=== PATIENT | female | born 1950 | race Two or more races ===

== ENCOUNTER 2018-04-22 22:39 | Emergency (ER) | payer OTHER ==
[~2018-04-22] VITALS: Ht 162.6 cm; Wt 80.7 kg
--- NOTE | 2018-04-22 23:10 | NUR ---
PT PRESENTED TO THE ER WITH A C/O LEFT SIDED SHOULDER PAIN 10/12 THAT RADIATES FROM THE NECK. PT STATED THAT SHE HAS BEEN SUFFERING WITH THIS FOR 1 MONTH AND HAS NO RELIEF. PT LAST TOOK MEDICATION YESTERDAY AT 10PM. PT IS NOT ABLE TO MOVE HER HEAD FROM SIDE TO SIDE WITHOUT PAIN. PT REC'D A WARM PACK TO THE LEFT NECK/SHOULDER. WILL CONTINUE TO MONITOR THE PT.
--- NOTE | 2018-04-22 23:48 | NUR ---
DR. JEAN IS AT THE BEDSIDE WITH RUDY FLOWERS WHO IS TRANSLATING FOR THE PT AND MD.
[2018-04-23] MEDS ORDERED: DIAZEPAM 10 MG TABLET PO ONE
[2018-04-23] MEDS ORDERED: HYDROCODONE/APAP 5/325MG 1 EACH TABLET PO ONE
[2018-04-23] MEDS ORDERED: DIAZEPAM 5 MG TABLET ONE (00:26)
[2018-04-23] MEDS ORDERED: IBUPROFEN 600 MG TABLET PO ONE ×2 (00:26)
[2018-04-23] MEDS ORDERED: HYDROCODONE/APAP 5/325MG 1 EACH TABLET ONE (00:26)
--- NOTE | 2018-04-23 00:47 | NUR ---
CXR DONE AT THE BEDSIDE.
--- NOTE | 2018-04-23 01:15 | NUR ---
HERB CALLED RE: IMAGING READ.
[2018-04-23 02:38] VITALS: BP 110/89
== END 2018-04-23 02:38 | disposition home or self-care (01) ==
LOC: ER 22:42
DX: M62.830 Muscle spasm of back (principal); I10 Essential (primary) hypertension; J45.909 Unspecified asthma, uncomplicated; Z60.2 Problems related to living alone
CPT/HCPCS: 71045-TC

== ENCOUNTER 2018-04-28 22:00 | Emergency (ER) | payer OTHER ==
[~2018-04-28] VITALS: Ht 162.6 cm; Wt 78.5 kg
[2018-04-28 22:11] VITALS: BP 152/90
[2018-04-28] MEDS: KETOROLAC TROMETHAMINE INJ 60 MG/2 ML VIAL IM ONE (22:50)
[2018-04-28] MEDS: CARISOPRODOL 350 MG TABLET PO ONE (22:50)
[2018-04-28] MEDS ORDERED: KETOROLAC TROMETHAMINE INJ 60 MG/2 ML VIAL IM ONE (22:52)
[2018-04-28] MEDS ORDERED: CARISOPRODOL 350 MG TABLET ONE (22:53)
== END 2018-04-28 23:06 | disposition home or self-care (01) ==
LOC: ER 22:02
DX: M62.830 Muscle spasm of back (principal); I10 Essential (primary) hypertension; J45.909 Unspecified asthma, uncomplicated; Z60.2 Problems related to living alone
CPT/HCPCS: J1885

== ENCOUNTER 2020-03-15 14:23 | Inpatient (IN) | payer MEDICAID, MEDICARE, OTHER ==
[~2020-03-15] VITALS: Ht 165.1 cm; Wt 77.1 kg
--- NOTE | 2020-03-15 14:35 | NUR ---
bibra c/o sob, desat 87% ON RA. denies any fever, cough. covid + she states. vs checked. placed on 4l o2 saturating at 94%.
[2020-03-15] MEDS ORDERED: LOSA25TA27 PO (14:38)
[2020-03-15] MEDS ORDERED: FLUT1BLS12 INH (14:38)
[2020-03-15] MEDS ORDERED: MAGN400T26 PO (14:38)
[2020-03-15] MEDS ORDERED: OMEP20CA15 PO (14:38)
[2020-03-15] MEDS ORDERED: ALBU18HF2 MT (14:38)
--- NOTE | 2020-03-15 14:50 | NUR ---
covid swab collected antigen sent to lab
[2020-03-15] MEDS ORDERED: DEXAMETHASONE SOD PHOSPHATE 10 MG/ML VIAL ONE (14:54)
[2020-03-15] MEDS ORDERED: ALBUTEROL FS 2.5 MG/3 ML VIAL.NEB ONE (14:54)
[2020-03-15] MEDS ORDERED: IPRATROPIUM NEB FS 0.5 MG/2.5 ML AMPUL.NEB ONE (14:54)
[2020-03-15] MEDS ORDERED: ALBUTEROL FS 2.5 MG/3 ML VIAL.NEB NEB ONE (15:00)
[2020-03-15] MEDS ORDERED: DEXAMETHASONE SOD PHOSPHATE 10 MG/ML VIAL IV ONE ×2 (15:00)
[2020-03-15] MEDS ORDERED: IPRATROPIUM NEB FS 0.5 MG/2.5 ML AMPUL.NEB NEB ONE (15:00)
--- NOTE | 2020-03-15 15:15 | NUR ---
xray by bedside
[2020-03-15] MEDS ORDERED: NORT25CA PO (15:16)
--- NOTE | 2020-03-15 15:30 | NUR ---
CALLED NURSING SUP FOR TELE BED.
[2020-03-15 15:43] LABS: CALCIUM, SERUM 8.1 mg/dL (8.5-10.1); CREATININE 0.9 mg/dL (0.6-1.3); POTASSIUM 3.8 mmol/L (3.5-5.1)
[2020-03-15 15:48] LABS: BASOPHILS % (AUTO) 0.1 % (0.0-2.0); HEMATOCRIT 42 % (33-45); HEMOGLOBIN 14.5 g/dL (11.5-14.8); LYMPHOCYTES % (AUTO) 11.5 % (20.0-44.0); MEAN CORPUSCULAR HGB CONC 34 g/dl (31.0-36.0); MEAN CORPUSCULAR VOLUME 95 fL (82-100); MONOCYTES # (AUTO) 0.8 /CMM (0.1-1.30); MONOCYTES % (AUTO) 9.4 % (2.0-12.0); NEUTROPHILS # (AUTO) 6.9 /CMM (1.8-8.9); PLATELET COUNT (AUTO) 192 /CMM (150-450); RED BLOOD CELL COUNT(AUTO) 4.45 MIL/uL (4.0-5.2); WHITE BLOOD COUNT (AUTO) 8.8 K/uL (4.3-11.0)
[2020-03-15 15:56] LABS: ALBUMIN 2.9 g/dL (3.4-5.0); BILIRUBIN,TOTAL 0.4 mg/dL (0.2-1.0); TOTAL PROTEIN, SERUM 7.4 g/dL (6.4-8.2)
[2020-03-15 16:33] LABS: BILIRUBIN,URINE NEGATIVE (NEGATIVE); BLOOD, URINE TRACE-INTA Ery/uL (NEGATIVE); COLOR,URINE YELLOW (YELLOW); LEUKOCYTE ESTERASE ,URINE NEGATIVE (NEGATIVE); NITRITE, URINE NEGATIVE (NEGATIVE); PH,URINE 6.5 (5.0-8.0); PROTEIN,URINE 30 mg/dl (NEGATIVE); UGLUCOSE NEGATIVE (NEGATIVE); UROBILINOGEN,URINE 0.2 EU/dL (0.2)
[2020-03-15 16:48] LABS: BACTERIA,URINE RARE /HPF (None Seen); SQUAMOUS EPITHELIAL CELL,UR 0-2 /HPF (None Seen); WBC,URINE 0-2 /HPF (0-3)
[2020-03-15] MEDS ORDERED: HYDROCODONE/APAP 5/325MG TABLET PO PRN (18:00)
[2020-03-15] MEDS ORDERED: Z GUARD REMEDY 2 OZ OINT TP PRN (18:00)
[2020-03-15] MEDS: DEXAMETHASONE SOD PHOSPHATE 4 MG/ML VIAL IV ONE (18:00)
[2020-03-15] MEDS ORDERED: ZOLPIDEM TARTRATE 5 MG TABLET PO PRN (18:00)
[2020-03-15] MEDS ORDERED: IPRATROPIUM/ALBUTEROL INHALER IH SCH (18:00)
[2020-03-15] MEDS ORDERED: MAGNESIUM HYDROXIDE 30 ML UDC PO PRN (18:00)
[2020-03-15] MEDS ORDERED: APIXABAN 5 MG TABLET PO SCH ×2 (18:00→23:26)
[2020-03-15] MEDS ORDERED: ONDANSETRON HCL/PF 4 MG/2 ML VIAL IVP PRN (18:00)
[2020-03-15] MEDS ORDERED: ALBUTEROL SULFATE INH 18 GM HFA.AER.AD IH PRN ×2 (18:00→22:34)
[2020-03-15] MEDS ORDERED: ALBUTEROL SULFATE 8 GM HFA.AER.AD IH PRN (18:30)
[2020-03-15 18:56] LABS: C-REACTIVE PROTEIN 8.6 mg/dL (0.0-0.9)
--- NOTE | 2020-03-15 19:29 | NUR ---
COVID NEGATIVE, PER LAB.
--- NOTE | 2020-03-15 21:48 | NUR ---
TELE 209-1
--- NOTE | 2020-03-15 21:54 | NUR ---
ATTEMPTED TO GIVE REPORT, NURSE IS BUSY PASSING MEDICATIONS.
[2020-03-15] MEDS ORDERED: REMDESIVIR (CHARGED) 200 MG, *LOADING DOSE 1 EA in IV NS 0.9% 210 ML IV ONE (22:00)
[2020-03-15] MEDS ORDERED: AZITHROMYCIN 250 MG TABLET PO ONE (22:28)
[2020-03-15] MEDS ORDERED: ENOXAPARIN SODIUM 40 MG/0.4 ML DISP.SYRIN SQ SCH (22:30)
[2020-03-15 22:35] VITALS: BP 122/70
--- NOTE | 2020-03-15 22:35 | NUR ---
PRESS CLEANERTANK STORAGE SUPERVISOR NOTE RECEIVED PATIENT VIA GURNEY, TRANSFERED TO BED WITH NO INJURY. PATIENT IS A/OX4, ESTONIAN SPEAKING, ABLE TO MAKE BASIC NEEDS KNOWN. ABLE TO TOLERATE ROOM AIR. O2 SAT 100% BUT PATIENT IS FEELING SOB APPLIED 2L/MIN VIA NASAL CANNULA. RESPIRATIONS ARE EVEN AND UNLABORED. NO S/S SOB NOTED. C/O HEADACHE AT THIS TIME, REQUESTING TYLENOL. NOTIFIED WILL SEE MD ORDER. EXTERNAL TELE MONITOR READS SINUS RHYTHM HR 71. IN NO APPARENT DISTRESS. IV ACCESS IN RAC#18 PATENT AND SALINE LOCKED. CATERER HELPER OBTAINED BELONGING LIST AND VITAL SIGNS. INITIAL ASSESSMENT COMPLETED AT THIS TIME. SKIN ASSESSMENT COMPLETED, SKIN INTACT. BED IS LOW AND LOCKED, HOB ELEVATED IN SEMI FOWLERS, SIDE RIALS UP X2, CALL LIGHT WITHIN REACH. WILL CONTINUE TO MONITOR
--- NOTE | 2020-03-15 22:42 | NUR ---
REPORT GIVEN TO MECHELLE MEHTA FOR SHAWN.
--- NOTE | 2020-03-15 22:43 | NUR ---
PATIENT IS TAKEN UP TO ROOM FOR SHAWN.
--- NOTE | 2020-03-15 23:30 | NUR ---
FIREBOAT OPERATOR NOTE CALLED [facility] TO CHANGE THE TIMES FOR PATIENTS MEDICATIONS D/T PATIENT LATE ARRIVAL TO UNIT. FOR ELIQUIS, COMBIVENT, AND DECADRON.
--- NOTE | 2020-03-15 23:32 | NUR ---
TEACHER INDUSTRIAL ARTS NOTE CALLED DR. SANCHEZ AND ASKED FOR CLARIFICATION D/T PATIENT HAS 2 ANTICOAGULANTS ORDERED FROM DIFFERENT DOCTORS. DR. SANTIAGO ORDERED LOVENOX 40MG AND DR. MADDOX ORDERED ELIQUIS 5MG. PER DANIEL GIVE PATIENT ELIQUIS AND HOLD LOVENOX FOR NOW, DO NOT DC, ENDORSE TO NEXT SHIFT TO CLARIFY WITH DAY PROVIDER. ORDER READ BACK NOTED AND CARRIED OUT.
--- NOTE | 2020-03-15 23:57 | NUR ---
BELT WORKER NOTE FAXED MEDICATION ORDER TO NURSING CHIEF EXECUTIVE OR MANAGING DIRECTOR FOR ROCEPHIN 1GM, AND COMBIVENT, NURSING SUP STATED NO COMBIVENT AVAILABLE IN NIGHT LOCKER. WILL BRING ROCEPHIN 1GM. ALSO ASKED ABOUT DEXAMETHASONE 6MG WITH PATIENT RECEIVED 10MG IV IN ER, ORDER STATES DAILY, NURSING SUP STATED DONT GIVE IF THE ORDER IS FOR DAILY. WILL CONTINUE TO MONITOR.
[2020-03-16] VITALS: BP 106/57
[2020-03-16] MEDS: ACETAMINOPHEN 325 MG TABLET PO PRN (00:02)
[2020-03-16] MEDS: NORTRIPTYLINE HCL 25 MG CAPSULE PO SCH ×2 (00:03→21:39)
--- NOTE | 2020-03-16 00:04 | NUR ---
outbound telemarketer note administered prn tylenol 650mg for pain complain of headache. will continue to monitor.
[2020-03-16] MEDS: CEFTRIAXONE 1 G in IV D5W 50 ML IV SCH ×2 (00:41→21:40)
--- NOTE | 2020-03-16 00:42 | NUR ---
telepathist note clarified with dr. howe if i should administer the 6mg iv decadrom scheduled for 1800 and patient didnt arrive to unit until 2240 and patient received 10mg iv in er at 1500. next dose would be 0900. dr. howe stated please give next dose at 0900. order read back noted and carried out.
[2020-03-16 04:00] VITALS: BP 111/65
--- NOTE | 2020-03-16 04:44 | NUR ---
telegraph office route aide note ep technologist 0400 vitals state temp 96.0. reassess temp is 97.5. warm blankets also given. o2 sat also 92%. increased o2 to 5l/min via nasal cannula o2 sat now 98%. will continue to monitor.
[2020-03-16] MEDS: IPRATROPIUM/ALBUTEROL INHALER IH SCH ×5 (06:00→23:15)
--- NOTE | 2020-03-16 07:08 | NUR ---
SURGICAL SUPERVISOR OPENING NOTES RECEIVED PT AWAKE IN BED AT THIS TIME. PT AOX4. PT ABLE TO VERBALIZE NEEDS. NO SOB NOTED, NO S/S OF ANY APPARENT DISTRESS NOTED. NO C/O PAIN AT THIS TIME. RESPIRATIONS ARE EVEN AND UNLABORED WITH EQUAL RISE AND FALL IN CHEST. PT STABLE ON RA. IV ACCESS NOTED IN RAC G#18, INTACT, PATENT AND FLUSHING WELL. PT NOTED ON 5LPM OXYGEN VIA NC. SAFETY PRECAUTION IN PLACE AND MAINTAINED AT ALL TIMES. BED IN LOWEST LOCKED POSITION, HOB ELEVATED, SIDE RAILS UP X 2, CALL LIGHT AND TABLE WITHIN REACH. WILL CONTINUE TO MONITOR
[2020-03-16 07:49] LABS: BASOPHILS % (AUTO) 0.2 % (0.0-2.0); HEMATOCRIT 42 % (33-45); HEMOGLOBIN 14.5 g/dL (11.5-14.8); LYMPHOCYTES # (AUTO) 0.6 /CMM (0.8-4.8); LYMPHOCYTES % (AUTO) 9.2 % (20.0-44.0); MEAN CORPUSCULAR HGB CONC 34 g/dl (31.0-36.0); MEAN CORPUSCULAR VOLUME 95 fL (82-100); MONOCYTES # (AUTO) 0.5 /CMM (0.1-1.30); MONOCYTES % (AUTO) 7.1 % (2.0-12.0); NEUTROPHILS # (AUTO) 5.8 /CMM (1.8-8.9); NEUTROPHILS % (AUTO) 83.5 % (43.0-81.0); PLATELET COUNT (AUTO) 205 /CMM (150-450); RED BLOOD CELL COUNT(AUTO) 4.44 MIL/uL (4.0-5.2); WHITE BLOOD COUNT (AUTO) 6.9 K/uL (4.3-11.0)
--- NOTE | 2020-03-16 07:52 | NUR ---
DIRECTOR OF MANUFACTURING OPERATIONS CLOSING NOTE ISOLATION TO R/O COVID. A/OX4, GREENLANDIC. ON OXYGEN 5L/MIN VIA NASAL CANNULA.NO RESP DISTRESS BUT PATIENT STATES FEELING SOB. MANAGED HEADACHE. EXTERNAL TELE MONITOR READS SINUS RHYTHM. NO DISTRESS. IV ACCESS MAINTAINED IN RAC#18 . BED REMAINS LOW AND LOCKED, HOB ELEVATED IN SEMI FOWLERS, SIDE RIALS UP X2, CALL LIGHT WITHIN REACH. WILL ENDORSE TO NEXT SHIFT.
[2020-03-16 08:00] VITALS: BP 101/66
[2020-03-16] MEDS: DEXAMETHASONE SOD PHOSPHATE 4 MG/ML VIAL IV SCH (08:39)
[2020-03-16 08:40] LABS: CALCIUM, SERUM 8.2 mg/dL (8.5-10.1); CREATININE 0.8 mg/dL (0.6-1.3); MAGNESIUM 2.8 mg/dL (1.8-2.4); PHOSPHORUS 3.4 mg/dL (2.5-4.9)
[2020-03-16] MEDS: APIXABAN 5 MG TABLET PO SCH ×2 (08:40→16:40)
[2020-03-16] MEDS: LOSARTAN POTASSIUM 25 MG TABLET PO SCH (08:41)
[2020-03-16] MEDS: FLUTICASONE/VILANTEROL 1 EACH BLST.W.DEV IH SCH (09:28)
[2020-03-16 09:36] LABS: THYROID STIMULATING HORMONE 0.476 uIU/mL (0.358-3.74)
[2020-03-16 12:00] VITALS: BP 109/66
--- NOTE | 2020-03-16 13:00 | NUR ---
PER DR JONES, TITRATE OXYGEN DOWN TO 3LPM VIA NC. ORDERS CARRIED OUT. WILL CONTINUE TO MONITOR
[2020-03-16 16:00] VITALS: BP 104/68
[2020-03-16] MEDS ORDERED: REMDESIVIR (CHARGED) 100 MG in IV NS 0.9% 230 ML IV SCH (18:00)
--- NOTE | 2020-03-16 18:09 | NUR ---
INSERTED IV ACCESS IN LFA G#20, GOOD BLOOD RETURN NOTED, INTACT PATENT AND FLUSHING WELL. PT TOLERATED WELL. WILL CONTINUE TO MONITOR
--- NOTE | 2020-03-16 19:04 | NUR ---
MEDICAL LIBRARY ASSISTANT CLOSING NOTES PT AWAKE IN BED AT THIS TIME. PT REMAINED STABLE THROUGHOUT SHIFT. ALL CARE, NEED, MEDICATIONS AND TREATMENT ADMINISTERED ANTICIPATED PER ORDER. PATIENT MOTIVATED TO SELF CARE. SAFETY PRECAUTION IN PLACE AND MAINTAINED AT ALL TIMES. BED IN LOWEST LOCKED POSITION, HOB ELEVATED, SIDE RAILS UP X 2, CALL LIGHT AND TABLE WITHIN REACH. WILL ENDORSE TO CLEAN ROOM TECHNICIAN NURSE FOR SHAWN
--- NOTE | 2020-03-16 19:30 | NUR ---
VEHICLE AND EQUIPMENT CLEANER NOTES RECEIVED ON BED A/O X 4,SPEAK MOROCCAN,UNDERSTAND KENYAN,SALINE LOCK RIGHT AC AND LFA INTACT AND PATENT.APPEARS UPSET DUE TO LOW O2 SAT READING SHE'S SEEN BP MACHINE AND IT WAS REPORTED WRONG.O2 SAT READING WAS RECHECK WITH ANOTHER PILOT BOAT CAPTAIN USING THE PULSE OX PROBE AND IT WAS 98-100 % ON 3L.PATIENT WAS HAPPY.CALL LIGHT IN REACH,NEEDS ANTICIPATED.
[2020-03-16 20:00] VITALS: BP 101/66
[2020-03-16] MEDS ORDERED: AZITHROMYCIN 250 MG TABLET PO ONE (22:00)
[2020-03-17] VITALS: BP 107/58
[2020-03-17 04:00] VITALS: BP 101/49
[2020-03-17] MEDS: IPRATROPIUM/ALBUTEROL INHALER IH SCH ×3 (05:58→18:31)
--- NOTE | 2020-03-17 06:43 | NUR ---
SHOE ASSOCIATE NOTES V FAIRLY RESTED AT NIGHT,ALL DUE MEDS GIVEN.FEELING WEAK,REQUESTING FOR HYDRATION.WILL ENDORSE TO DAY NURSE FOR SHAWN.
[2020-03-17 06:51] LABS: BASOPHILS % (AUTO) 0.2 % (0.0-2.0); HEMATOCRIT 41 % (33-45); HEMOGLOBIN 13.6 g/dL (11.5-14.8); LYMPHOCYTES # (AUTO) 0.8 /CMM (0.8-4.8); LYMPHOCYTES % (AUTO) 5.1 % (20.0-44.0); MEAN CORPUSCULAR HGB CONC 33 g/dl (31.0-36.0); MEAN CORPUSCULAR VOLUME 96 fL (82-100); MONOCYTES # (AUTO) 0.8 /CMM (0.1-1.30); MONOCYTES % (AUTO) 4.9 % (2.0-12.0); NEUTROPHILS # (AUTO) 14.9 /CMM (1.8-8.9); NEUTROPHILS % (AUTO) 89.8 % (43.0-81.0); PLATELET COUNT (AUTO) 255 /CMM (150-450); RED BLOOD CELL COUNT(AUTO) 4.29 MIL/uL (4.0-5.2); WHITE BLOOD COUNT (AUTO) 16.5 K/uL (4.3-11.0)
--- NOTE | 2020-03-17 07:40 | NUR ---
RETIREMENT SALES CONSULTANT OPEN NOTES PATIENT IS A/O X 4, NO SIGNS OF DISTRESS ON 3L OF NASAL CANNULA. TELE MONITOR SR. NO COMPLAIN OF PAIN AT THIS TIME. IV L FA#20G INTACT. SAFETY MEASURES ARE APPLIED, BED IS LOCKED AND LOW POSITION, SIDE RAILS UP X 2. WILL CONTINUE TO MONITOR.
[2020-03-17 07:58] LABS: CALCIUM, SERUM 8.5 mg/dL (8.5-10.1); CREATININE 0.9 mg/dL (0.6-1.3); MAGNESIUM 2.6 mg/dL (1.8-2.4)
[2020-03-17 08:00] VITALS: BP 106/64
[2020-03-17] MEDS: LOSARTAN POTASSIUM 25 MG TABLET PO SCH (09:00)
[2020-03-17] MEDS: DEXAMETHASONE SOD PHOSPHATE 4 MG/ML VIAL IV SCH (10:32)
[2020-03-17] MEDS: APIXABAN 5 MG TABLET PO SCH ×2 (10:33→18:30)
[2020-03-17] MEDS: FLUTICASONE/VILANTEROL 1 EACH BLST.W.DEV IH SCH (10:33)
[2020-03-17 16:00] VITALS: BP 120/76
[2020-03-17] MEDS: ACETAMINOPHEN 325 MG TABLET PO PRN (19:12)
--- NOTE | 2020-03-17 19:42 | NUR ---
RN OPENING NOTES PATIENT RECEIVED RESTING IN BED ON 3L OF O2 WITH BREATHING EVEN AND UNLABORED, NO SOB NOTED. NO SIGNS OF ACUTE DISTRESS. NO COMPLAINTS OF PAIN OR DISCOMFORT AT THE MOMENT. IV LOCATED ON R AC #20 PATENT AND INTACT. SAFETY PRECAUTIONS IN PLACE WITH BED IN LOWEST POSITION, CALL LIGHT WITHIN REACH, BREAKS ON, SIDE RAILS UP.
[2020-03-17 20:00] VITALS: BP 116/72
--- NOTE | 2020-03-17 20:00 | NUR ---
PEOPLE GREETER CLOSING NOTES A/O X 4 WITH NO SIGNS OF DISTRESS ON 3L OF NASAL CANNULA. IV L FA#20G INTACT. TELE MONITOR. PT REMAINED STABLE THROUGHOUT SHIFT. ALL CARE, NEED, MEDICATIONS AND TREATMENT ADMINISTERED ANTICIPATED PER ORDER. PATIENT MOTIVATED TO SELF CARE. SAFETY PRECAUTION IN PLACE AND MAINTAINED AT ALL TIMES. BED IN LOWEST LOCKED POSITION, HOB ELEVATED, SIDE RAILS UP X 2, CALL LIGHT AND TABLE WITHIN REACH. WILL ENDORSE TO SALARY MANAGER NURSE.
[2020-03-17] MEDS: NORTRIPTYLINE HCL 25 MG CAPSULE PO SCH (21:28)
[2020-03-17] MEDS: AZITHROMYCIN 250 MG TABLET PO SCH (21:28)
[2020-03-17] MEDS: CEFTRIAXONE 1 G in IV D5W 50 ML IV SCH (21:29)
[2020-03-18] MEDS: IPRATROPIUM/ALBUTEROL INHALER IH SCH ×5 (00:38→23:11)
[2020-03-18 04:00] VITALS: BP_SYST 111; BP_DIAS 62; BP_DIAS 64
--- NOTE | 2020-03-18 06:51 | NUR ---
RN CLOSING NOTES PATIENT RESTING IN BED ON 3L OF O2 WITH BREATHING EVEN AND UNLABORED, NO SOB NOTED. NO SIGNS OF ACUTE DISTRESS. NO COMPLAINTS OF PAIN OR DISCOMFORT AT THE MOMENT. IV LOCATED ON L FA #20 PATENT AND INTACT. SAFETY PRECAUTIONS IN PLACE WITH BED IN LOWEST POSITION, CALL LIGHT WITHIN REACH, BREAKS ON, SIDE RAILS UP. ALL NEEDS ATTENDED TO. WILL ENDORSE TO ONCOMING SHIFT ABOUT SHAWN.
--- NOTE | 2020-03-18 07:35 | NUR ---
TELE/RN OPENING NOTES RECEIVED PATIENT ON BED AWAKE ALERT AND ORIENTED X 4. PATIENT IS ON OXYGEN 3L/MIN VIA NASAL CANNULA. PATIENT IN NO APPARENT RESPIRATORY DISTRESS NOTED. NO COMPLAINED OF PAIN NOTED AT THIS TIME. WILL CONTINUE TO MONITOR.
[2020-03-18 08:00] VITALS: BP 122/75
[2020-03-18 08:26] LABS: BASOPHILS % (AUTO) 0.1 % (0.0-2.0); HEMATOCRIT 42 % (33-45); HEMOGLOBIN 13.9 g/dL (11.5-14.8); LYMPHOCYTES # (AUTO) 1.1 /CMM (0.8-4.8); MEAN CORPUSCULAR HGB CONC 34 g/dl (31.0-36.0); MEAN CORPUSCULAR VOLUME 96 fL (82-100); MONOCYTES # (AUTO) 0.9 /CMM (0.1-1.30); MONOCYTES % (AUTO) 6.9 % (2.0-12.0); NEUTROPHILS # (AUTO) 11.3 /CMM (1.8-8.9); PLATELET COUNT (AUTO) 310 /CMM (150-450); RED BLOOD CELL COUNT(AUTO) 4.33 MIL/uL (4.0-5.2); WHITE BLOOD COUNT (AUTO) 13.2 K/uL (4.3-11.0)
[2020-03-18 08:33] LABS: CALCIUM, SERUM 8.2 mg/dL (8.5-10.1); CREATININE 0.8 mg/dL (0.6-1.3); MAGNESIUM 2.6 mg/dL (1.8-2.4); POTASSIUM 4.3 mmol/L (3.5-5.1)
[2020-03-18] MEDS: DEXAMETHASONE SOD PHOSPHATE 4 MG/ML VIAL IV SCH (09:15)
[2020-03-18] MEDS: LOSARTAN POTASSIUM 25 MG TABLET PO SCH (09:15)
[2020-03-18] MEDS: APIXABAN 5 MG TABLET PO SCH ×2 (09:21→18:11)
[2020-03-18] MEDS: FLUTICASONE/VILANTEROL 1 EACH BLST.W.DEV IH SCH (09:28)
[2020-03-18 11:04] LABS: BILIRUBIN,DIRECT 0.1 mg/dL (0.0-0.2); BILIRUBIN,TOTAL 0.3 mg/dL (0.2-1.0)
[2020-03-18 11:17] LABS: ALBUMIN 2.6 g/dL (3.4-5.0); TOTAL PROTEIN, SERUM 7.2 g/dL (6.4-8.2)
[2020-03-18] MEDS ORDERED: REMDESIVIR (CHARGED) 200 MG, *LOADING DOSE 1 EA in IV NS 0.9% 210 ML IV ONE (12:00)
--- NOTE | 2020-03-18 13:29 | NUR ---
TELE/RN OPENING NOTES RECEIVED PATIENT ON BED AWAKE ALERT AND ORIENTED X 4. PATIENT IS ON OXYGEN 3L/MIN VIA NASAL CANNULA. PATIENT IN NO APPARENT RESPIRATORY DISTRESS NOTED. NO COMPLAINED OF PAIN NOTED AT THIS TIME. WILL CONTINUE TO MONITOR. Addendum: 03/18/20 at 1331 by JEANE MOHAN RN ERROR
[2020-03-18 16:00] VITALS: BP 104/69
--- NOTE | 2020-03-18 19:28 | NUR ---
TELE/RN OPENING NOTES PATIENT IS ON BED AWAKE ALERT AND ORIENTED X 4. PATIENT IS ON OXYGEN 3L/MIN VIA NASAL CANNULA. PATIENT IN NO APPARENT RESPIRATORY DISTRESS NOTED. NO COMPLAINED OF PAIN NOTED AT THIS TIME. SEEN AND EXAMINED BY MD WITH ORDERS MADE AND CARRIED OUT. ALL DUE MEDICATION WAS GIVEN. WILL ENDORSED TO ENGINEER TECHNICIAN FOR SHAWN. Addendum: 03/18/20 at 2022 by JEANE MOHAN RN ERROR
--- NOTE | 2020-03-18 19:35 | NUR ---
MEDICAL INTERN OPENING NOTES RECEIVED PATIENT IN BED, ALERT AND ORIENTED X 4. AMBULATORY, VERBALLY RESPONSIVE AND ABLE TO FOLLOW DIRECTION. BREATHING REGULAR AND UNLABORED ON OXYGEN AT 3L/MIN VIA NASAL CANNULA, LATEST SPO2 97%. LEFT FOREARM G20 IV LINE INTACT AND PATENT, FLUSHING WELL WITH NO BLEEDING OR S/S OF INFILTRATION NOTED. ON CARDIAC MONITORING WITH NORMAL SINUS RHYTHM AT 73bpm. DENIES PAIN/DISCOMFORT AT THIS TIME. BED LOW AND LOCKED ON SEMI FOWLERS POSITION. CALL LIGHT IN REACH. MAINTAINED ON CONTACT/DROPLET ISOLATION FOR COVID19. PROPER HAND WASHING AND ISOLATION PRECAUTION OBSERVED. WILL CONTINUE TO MONITOR.
[2020-03-18 20:00] VITALS: BP 98/62
--- NOTE | 2020-03-18 20:23 | NUR ---
TELE/RN CLOSING NOTES PATIENT IS ON BED AWAKE ALERT AND ORIENTED X 4. PATIENT IS ON OXYGEN 3L/MIN VIA NASAL CANNULA. PATIENT IN NO APPARENT RESPIRATORY DISTRESS NOTED. NO COMPLAINED OF PAIN NOTED AT THIS TIME. SEEN AND EXAMINED BY MD WITH ORDERS MADE AND CARRIED OUT. ALL DUE MEDICATION WAS GIVEN. WILL ENDORSED TO TOW DRIVER FOR SHAWN.
[2020-03-18] MEDS: CEFTRIAXONE 1 G in IV D5W 50 ML IV SCH (21:06)
[2020-03-18] MEDS: AZITHROMYCIN 250 MG TABLET PO SCH (21:06)
[2020-03-18] MEDS: NORTRIPTYLINE HCL 25 MG CAPSULE PO SCH (21:06)
--- NOTE | 2020-03-18 23:25 | NUR ---
MELT HOUSE SUPERVISOR NOTES CONSENT FOR CONVALESCENT PLASMA SIGNED BY PATIENT.
[2020-03-19] VITALS: BP 107/74
[2020-03-19 04:00] VITALS: BP 100/65
[2020-03-19] MEDS: IPRATROPIUM/ALBUTEROL INHALER IH SCH ×4 (06:28→23:41)
--- NOTE | 2020-03-19 06:50 | NUR ---
LIQUEFACTION PLANT OPERATOR OPENING NOTES RECEIVED PATIENT IN BED, ALERT AND ORIENTED X 4. AFEBRILE WITH NO S/S OF DISTRESS OBSERVED. LEFT FOREARM G20 IV LINE PATENT AND FLUSHING WELL. MAINTAINED ON CARDIAC MONITORING WITH NORMAL SINUS RHYTHM AT 63bpm. NO COMPLAINTS OF PAIN/DISCOMFORT REPORTED AT THIS TIME. BED LOW AND LOCKED ON SEMI FOWLERS POSITION. CALL LIGHT IN REACH. WILL ENDORSE TO MORNING SHIFT FOR SHAWN. Addendum: 03/19/20 at 0710 by SALVADOR PEARL RN LIQUEFACTION PLANT OPERATOR CLOSING NOTES
--- NOTE | 2020-03-19 07:15 | NUR ---
INDUCTOR TESTER NOTES RECEIVED PATIENT IN BED ASLEEP, AROUSABLE TO VERBAL AD TACTILE STIMULI. HOB ELEVATED. ON 3L/MIN VIA NC GEOFFREY WELL. NOTED ON AND OFF COUGH BUT ABLE TO COUGH OUT SECRETIONS. ON TELE MONITORING NSR: 69. BED IN LOWEST POSITION ,LOCKED. BED ALARM ON. CALL LIGHT
[2020-03-19 07:49] LABS: BASOPHILS % (AUTO) 0.3 % (0.0-2.0); EOSINOPHILS % (AUTO) 0.2 % (0.0-6.0); HEMATOCRIT 42 % (33-45); LYMPHOCYTES # (AUTO) 1.5 /CMM (0.8-4.8); LYMPHOCYTES % (AUTO) 12.6 % (20.0-44.0); MEAN CORPUSCULAR HGB CONC 33 g/dl (31.0-36.0); MEAN CORPUSCULAR VOLUME 97 fL (82-100); MONOCYTES # (AUTO) 0.8 /CMM (0.1-1.30); MONOCYTES % (AUTO) 6.8 % (2.0-12.0); NEUTROPHILS # (AUTO) 9.8 /CMM (1.8-8.9); NEUTROPHILS % (AUTO) 80.1 % (43.0-81.0); PLATELET COUNT (AUTO) 343 /CMM (150-450); RED BLOOD CELL COUNT(AUTO) 4.39 MIL/uL (4.0-5.2); WHITE BLOOD COUNT (AUTO) 12.3 K/uL (4.3-11.0)
[2020-03-19 08:00] VITALS: BP 110/68
[2020-03-19 08:17] LABS: ALBUMIN 2.6 g/dL (3.4-5.0); BILIRUBIN,DIRECT 0.1 mg/dL (0.0-0.2); BILIRUBIN,TOTAL 0.3 mg/dL (0.2-1.0); CALCIUM, SERUM 8.3 mg/dL (8.5-10.1); CREATININE 0.8 mg/dL (0.6-1.3); PHOSPHORUS 3.5 mg/dL (2.5-4.9); POTASSIUM 4.4 mmol/L (3.5-5.1); TOTAL PROTEIN, SERUM 6.9 g/dL (6.4-8.2)
[2020-03-19] MEDS: DEXAMETHASONE SOD PHOSPHATE 4 MG/ML VIAL IV SCH (10:00)
[2020-03-19] MEDS: APIXABAN 5 MG TABLET PO SCH ×2 (10:00→16:04)
[2020-03-19] MEDS: LOSARTAN POTASSIUM 25 MG TABLET PO SCH (10:00)
[2020-03-19] MEDS: FLUTICASONE/VILANTEROL 1 EACH BLST.W.DEV IH SCH (10:00)
--- NOTE | 2020-03-19 10:00 | NUR ---
RN NOTES HELD VIANEY B/P 98/63.
[2020-03-19] MEDS: REMDESIVIR (CHARGED) 100 MG in IV NS 0.9% 230 ML IV SCH (12:34)
[2020-03-19] MEDS: MAG HYDROX/AL HYDROX/SIMETH 30 ML UDC PO PRN (16:04)
[2020-03-19 17:00] VITALS: BP 98/63
--- NOTE | 2020-03-19 19:39 | NUR ---
REGISTERED ACCOUNT ADMINISTRATOR NOTES PATIENT RESTING COMFORTABLY IN BED WATCHING TV. TITRATED PATIENT DURING THE SHIFT SINCE THIS AM, NOW ON 1L/MIN VIA NC GEOFFREY WELL. NOTED ON AND OFF COUGH BUT ABLE TO COUGH OUT SECRETIONS. O2 SENSOR PLACED ON ON PATIENT'S EAR FOR BETTER READING WITH SPO2 OF 94-98% AT 1L/MIN VIA NC. BED IN LOWEST POSITION ,LOCKED. BED ALARM ON. CALL LIGHT WITHIN REACH. IN NO APPARENT DISTRESS.
[2020-03-19 20:00] VITALS: BP 107/67
--- NOTE | 2020-03-19 20:10 | NUR ---
PRODUCT SALES ENGINEER NOTE: PATIENT RESTING IN BED, NO ACUTE DISTRESS NOTED. BREATHING EVEN AND UNLABORED, NO SOB NOTED AT THIS TIME. IV TO LFA IN PLACE. ISOLATION PRECAUTION OBSERVED. BED LOCKED AND IN LOWEST POSITION, CALL LIGHT IN REACH. WILL CONTINUE TO MONITOR.
[2020-03-19] MEDS: NORTRIPTYLINE HCL 25 MG CAPSULE PO SCH (22:16)
[2020-03-19] MEDS: CEFTRIAXONE 1 G in IV D5W 50 ML IV SCH (22:16)
[2020-03-19] MEDS: AZITHROMYCIN 250 MG TABLET PO SCH (22:16)
[2020-03-20] VITALS: BP 123/84
--- NOTE | 2020-03-20 06:10 | NUR ---
ELEVATOR ERECTOR NOTE: PATIENT RESTING IN BED, NO ACUTE DISTRESS NOTED. BREATHING EVEN AND UNLABORED, NO SOB NOTED AT THIS TIME. IV TO LFA IN PLACE. ISOLATION PRECAUTION OBSERVED. BED LOCKED AND IN LOWEST POSITION, CALL LIGHT IN REACH. WILL ENDORSE TO DAY NURSE TO CONTINUE WITH PLAN OF CARE.
[2020-03-20] MEDS: IPRATROPIUM/ALBUTEROL INHALER IH SCH ×3 (06:20→17:08)
--- NOTE | 2020-03-20 07:30 | NUR ---
PT RECEIVED RESTING COMFORTABLY IN BED. NO S/S OR C/O PAIN OR DISTRESS NOTED. SIDE RAILS UP X2, CALL LIGHT LEFT WITHIN REACH. WILL CONTINUE PLAN OF CARE.
[2020-03-20 08:00] VITALS: BP 97/69
[2020-03-20 08:32] LABS: BASOPHILS % (AUTO) 0.2 % (0.0-2.0); EOSINOPHILS % (AUTO) 0.3 % (0.0-6.0); HEMATOCRIT 41 % (33-45); LYMPHOCYTES # (AUTO) 1.5 /CMM (0.8-4.8); LYMPHOCYTES % (AUTO) 13.5 % (20.0-44.0); MEAN CORPUSCULAR HGB CONC 34 g/dl (31.0-36.0); MEAN CORPUSCULAR VOLUME 95 fL (82-100); MONOCYTES # (AUTO) 0.7 /CMM (0.1-1.30); MONOCYTES % (AUTO) 6.3 % (2.0-12.0); NEUTROPHILS # (AUTO) 8.8 /CMM (1.8-8.9); NEUTROPHILS % (AUTO) 79.7 % (43.0-81.0); PLATELET COUNT (AUTO) 358 /CMM (150-450); RED BLOOD CELL COUNT(AUTO) 4.36 MIL/uL (4.0-5.2)
[2020-03-20] MEDS: LOSARTAN POTASSIUM 25 MG TABLET PO SCH (09:00)
[2020-03-20] MEDS: APIXABAN 5 MG TABLET PO SCH ×2 (09:40→17:08)
[2020-03-20] MEDS: FLUTICASONE/VILANTEROL 1 EACH BLST.W.DEV IH SCH (09:43)
[2020-03-20] MEDS: DEXAMETHASONE SOD PHOSPHATE 4 MG/ML VIAL IV SCH (09:43)
[2020-03-20 12:00] VITALS: BP 94/59
[2020-03-20 13:30] LABS: ALBUMIN 2.7 g/dL (3.4-5.0); BILIRUBIN,DIRECT 0.1 mg/dL (0.0-0.2); BILIRUBIN,TOTAL 0.3 mg/dL (0.2-1.0); CALCIUM, SERUM 8.9 mg/dL (8.5-10.1); CREATININE 0.8 mg/dL (0.6-1.3); MAGNESIUM 2.8 mg/dL (1.8-2.4); POTASSIUM 4.5 mmol/L (3.5-5.1); TOTAL PROTEIN, SERUM 7.1 g/dL (6.4-8.2)
[2020-03-20] MEDS: REMDESIVIR (CHARGED) 100 MG in IV NS 0.9% 230 ML IV SCH (14:43)
--- NOTE | 2020-03-20 19:30 | NUR ---
TELE/RN OPENING NOTES RECEIVED PATIENT IN BED RESTING. PATIENT IS ALERT AND ORIENTED X 4. NO SIGNS OF SOB OR RESPIRATORY DISTRESS NOTED. PATIENT IN NO SIGNS OF DISTRESS. TELE READING SR. PATIENT HAS IV ACCESS ON LEFT FOREARM #20G INTACT FLUSHING WELL. SAFETY MEASURES ARE IN PLACE, BED IS LOCKED AND PLACED IN THE LOW POSITION, SIDE RAILS UP X 2. CALL LIGHT IS WITHIN REACH WILL MONITOR THROUGH OUT SHIFT.
--- NOTE | 2020-03-20 19:51 | NUR ---
LOAD OUT WORKER CLOSING NOTES PATIENT IN BED, ALERT AND ORIENTED X 4 ABLE TO MAKE NEEDS KNOWN. AFEBRILE WITH NO S/S OF DISTRESS OBSERVED. LEFT FOREARM G20 IV LINE PATENT AND FLUSHING WELL. MAINTAINED ON CARDIAC MONITORING WITH NORMAL SINUS RHYTHM AT 60'Sbpm. ON OXYGEN 1LPM NASAL CANULA, TOLERATING WELL. NO COMPLAINTS OF PAIN/DISCOMFORT REPORTED AT THIS TIME. BED LOW AND LOCKED ON SEMI FOWLERS POSITION. SIDE RAILS UP X2. CALL LIGHT IN REACH. WILL ENDORSE TO ONCOMING NURSE PLAN OF CARE.
[2020-03-20 20:00] VITALS: BP 101/59
[2020-03-20] MEDS: AZITHROMYCIN 250 MG TABLET PO SCH (21:30)
[2020-03-20] MEDS: NORTRIPTYLINE HCL 25 MG CAPSULE PO SCH (21:30)
[2020-03-20] MEDS: CEFTRIAXONE 1 G in IV D5W 50 ML IV SCH (21:30)
[2020-03-20] MEDS: ACETAMINOPHEN 325 MG TABLET PO PRN (22:33)
--- NOTE | 2020-03-20 22:35 | NUR ---
TELE/RN NOTES PATIENT REQUESTING FOR TYLENOL FOR MILD BACK PAIN. TYLENOL 650 PO WAS GIVEN. PATIENT IS STABLE V/S WNL.
--- NOTE | 2020-03-20 23:30 | NUR ---
TELE/RN NOTES LAB CALLED FOR CONVALESCENT PLASMA FOR PATIENT. PLASMA PLACED ON HOLD. PER DAY SHIFT NURSE CONVALESCENT PLASMA IS ON HOLD DUE TO PATIENT IMPROVING CONDITIONS, TO CONTINUE ABX TREATMENT. PER MD NOTES, PATIENT TO START ON CONVALESCENT PLASMA. WILL CLARIFY WITH MD FOR ADMINISTRATION OF PLASMA.
[2020-03-21] VITALS: BP 125/69
[2020-03-21] MEDS: IPRATROPIUM/ALBUTEROL INHALER IH SCH ×4 (00:15→17:51)
[2020-03-21 04:00] VITALS: BP 106/66
--- NOTE | 2020-03-21 06:55 | NUR ---
TELE/RN CLOSING NOTES PATIENT IN BED RESTING. PATIENT IS ALERT AND ORIENTED X 4. NO SIGNS OF SOB OR RESPIRATORY DISTRESS NOTED. PATIENT IN NO SIGNS OF DISTRESS. TELE READING SR. PATIENT HAS IV ACCESS ON LEFT FOREARM #20G INTACT FLUSHING WELL. ALL NEED HAVE BEEN MET DURING SHIFT. SAFETY MEASURES ARE IN PLACE, BED IS LOCKED AND PLACED IN THE LOW POSITION, SIDE RAILS UP X 2. WILL ENDORSE CARE TO DAY SHIFT NURSE.
--- NOTE | 2020-03-21 07:25 | NUR ---
FLAKING ROLL OPERATOR OPENING NOTES BEDSIDE ENDORSEMENT DONE. PATIENT IS IN BED RESTING, AWAKE AND VERBALLY RESPONSIVE. ALERT AND ORIENTED X 4. BREATHING EVEN AND UNLABORED, ON O2 AT 5LPM VIA NC, NO RESPIRATORY DISTRESS NOTED. ON TELE MONITORING, READING OF SR, HR IN THE MID 60'S, NO CARDIAC DISTRESS. IV LINE ON LEFT FOREARM #20G INTACT AND PATENT. SAFETY MEASURES IN PLACE: BED IS LOCKED AND PLACED IN THE LOWEST POSITION, SIDE RAILS UP X 2, CALL LIGHT W/IN REACH. WILL CONTINUE TO MONITOR.
[2020-03-21 07:39] LABS: BASOPHILS % (AUTO) 0.2 % (0.0-2.0); EOSINOPHILS % (AUTO) 0.4 % (0.0-6.0); HEMATOCRIT 41 % (33-45); HEMOGLOBIN 13.8 g/dL (11.5-14.8); LYMPHOCYTES # (AUTO) 1.4 /CMM (0.8-4.8); LYMPHOCYTES % (AUTO) 8.6 % (20.0-44.0); MEAN CORPUSCULAR HGB CONC 34 g/dl (31.0-36.0); MEAN CORPUSCULAR VOLUME 95 fL (82-100); MONOCYTES # (AUTO) 0.8 /CMM (0.1-1.30); MONOCYTES % (AUTO) 4.9 % (2.0-12.0); NEUTROPHILS # (AUTO) 13.9 /CMM (1.8-8.9); NEUTROPHILS % (AUTO) 85.9 % (43.0-81.0); PLATELET COUNT (AUTO) 397 /CMM (150-450); RED BLOOD CELL COUNT(AUTO) 4.33 MIL/uL (4.0-5.2); WHITE BLOOD COUNT (AUTO) 16.2 K/uL (4.3-11.0)
[2020-03-21 08:00] VITALS: BP 92/52
[2020-03-21] MEDS: DEXAMETHASONE SOD PHOSPHATE 4 MG/ML VIAL IV SCH (08:43)
[2020-03-21] MEDS: APIXABAN 5 MG TABLET PO SCH ×2 (08:44→16:24)
[2020-03-21] MEDS: FLUTICASONE/VILANTEROL 1 EACH BLST.W.DEV IH SCH (08:54)
[2020-03-21] MEDS: LOSARTAN POTASSIUM 25 MG TABLET PO SCH (08:54)
[2020-03-21 09:15] LABS: ALBUMIN 2.6 g/dL (3.4-5.0); BILIRUBIN,DIRECT 0.1 mg/dL (0.0-0.2); BILIRUBIN,TOTAL 0.4 mg/dL (0.2-1.0); CALCIUM, SERUM 8.7 mg/dL (8.5-10.1); PHOSPHORUS 3.6 mg/dL (2.5-4.9); POTASSIUM 4.3 mmol/L (3.5-5.1); TOTAL PROTEIN, SERUM 6.8 g/dL (6.4-8.2)
[2020-03-21] MEDS: REMDESIVIR (CHARGED) 100 MG in IV NS 0.9% 230 ML IV SCH (11:27)
[2020-03-21 12:00] VITALS: BP 101/63
--- NOTE | 2020-03-21 18:41 | NUR ---
ART SPECIALIST CLOSING NOTES PATIENT IS IN BED AWAKE AND VERBALLY RESPONSIVE. ALERT AND ORIENTED X4, ABLE TO MAKE NEEDS KNOWN. BREATHING EVEN AND UNLABORED, ON O2 AT 4LPM VIA NC, NO RESPIRATORY DISTRESS NOTED. ON TELE MONITORING, READING OF SR, HR IN THE 60'S, NO CARDIAC DISTRESS. IV LINE ON LEFT FOREARM #20G INTACT AND PATENT. SAFETY MEASURES MAINTAINED: BED IS LOCKED AND PLACED IN THE LOWEST POSITION, SIDE RAILS UP X 2, CALL LIGHT W/IN REACH. WILL ENDORSE TO BRUSH HAND RN FOR SHAWN.
[2020-03-21 20:52] VITALS: BP 140/72
[2020-03-21] MEDS: CEFTRIAXONE 1 G in IV D5W 50 ML IV SCH (23:26)
[2020-03-21] MEDS: NORTRIPTYLINE HCL 25 MG CAPSULE PO SCH (23:26)
[2020-03-21] MEDS: AZITHROMYCIN 250 MG TABLET PO SCH (23:26)
[2020-03-22] MEDS: MAG HYDROX/AL HYDROX/SIMETH 30 ML UDC PO PRN (00:02)
[2020-03-22] MEDS: IPRATROPIUM/ALBUTEROL INHALER IH SCH ×4 (00:04→17:33)
[2020-03-22 00:18] VITALS: BP 112/66
[2020-03-22 05:32] VITALS: BP 108/74
--- NOTE | 2020-03-22 06:27 | NUR ---
NEWSPAPER COLUMNIST CLOSING NOTES: PATIENT RESTING IN BED, AWAKE, A/O X4. NO S/S OF DISTRESS NOTED. BED IN LOWEST AND LOCKED POSITION. CALL LIGHT WITHIN REACH. AMBULATORY.
[2020-03-22 06:39] LABS: BASOPHILS % (AUTO) 0.2 % (0.0-2.0); EOSINOPHILS % (AUTO) 0.5 % (0.0-6.0); HEMATOCRIT 41 % (33-45); HEMOGLOBIN 13.8 g/dL (11.5-14.8); LYMPHOCYTES # (AUTO) 1.3 /CMM (0.8-4.8); LYMPHOCYTES % (AUTO) 8.4 % (20.0-44.0); MEAN CORPUSCULAR HGB CONC 33 g/dl (31.0-36.0); MEAN CORPUSCULAR VOLUME 95 fL (82-100); MONOCYTES # (AUTO) 0.6 /CMM (0.1-1.30); MONOCYTES % (AUTO) 3.5 % (2.0-12.0); NEUTROPHILS % (AUTO) 87.4 % (43.0-81.0); PLATELET COUNT (AUTO) 382 /CMM (150-450); RED BLOOD CELL COUNT(AUTO) 4.33 MIL/uL (4.0-5.2); WHITE BLOOD COUNT (AUTO) 16.1 K/uL (4.3-11.0)
--- NOTE | 2020-03-22 07:20 | NUR ---
COUNTERINTELLIGENCE ANALYST NOTES RECEIVED PATIENT IN BED ASLEEP, AROUSABLE TO VERBAL AND TACTILE STIMULI. HOB ELEVATED. ON 4L/MIN VIA NC GEOFFREY WELL. ON TELE MONITORING NSR: 69. BED IN LOWEST POSITION ,LOCKED. BED ALARM ON. CALL LIGHT. ABLE TO VERBALIZE NEEDS.
[2020-03-22 08:33] LABS: ALBUMIN 2.7 g/dL (3.4-5.0); BILIRUBIN,DIRECT 0.1 mg/dL (0.0-0.2); BILIRUBIN,TOTAL 0.4 mg/dL (0.2-1.0); CALCIUM, SERUM 8.1 mg/dL (8.5-10.1); CREATININE 0.8 mg/dL (0.6-1.3); MAGNESIUM 2.3 mg/dL (1.8-2.4); PHOSPHORUS 2.7 mg/dL (2.5-4.9); POTASSIUM 3.9 mmol/L (3.5-5.1); TOTAL PROTEIN, SERUM 6.7 g/dL (6.4-8.2)
[2020-03-22] MEDS: DEXAMETHASONE SOD PHOSPHATE 4 MG/ML VIAL IV SCH (08:59)
[2020-03-22] MEDS: APIXABAN 5 MG TABLET PO SCH ×2 (09:00→16:20)
[2020-03-22] MEDS: LOSARTAN POTASSIUM 25 MG TABLET PO SCH (09:00)
[2020-03-22] MEDS: FLUTICASONE/VILANTEROL 1 EACH BLST.W.DEV IH SCH (09:05)
--- NOTE | 2020-03-22 09:06 | NUR ---
RN NOTES HELD VIANEY. BP LOW 91/54.
[2020-03-22 12:00] VITALS: BP 91/54
[2020-03-22] MEDS: REMDESIVIR (CHARGED) 100 MG in IV NS 0.9% 230 ML IV SCH (12:57)
[2020-03-22 16:00] VITALS: BP 115/65
--- NOTE | 2020-03-22 19:15 | NUR ---
RN NOTES: RECEIVED SITTING COMFORTABLY IN HER BED, NO SOB OR ANY SIGN OF RESPIRATORY DISTRESS , A/OX4, ABLE TO MAKE NEEDS KNOWS SHE SAID SHE IS WAITING FOR HER FOOD FROM HER FAMILY, NO PAIN OR DISCOMFORT, ORIENTED TO UNIT AND STAFF, FALL,SAFETY AND ASPIRATION PRECAUTION OBSERVED, BED LOW AND LOCKED, CALL LIGHT KEPT WITHIN EASY REACH.
--- NOTE | 2020-03-22 19:33 | NUR ---
MAGISTRATE ASSISTANT NOTES PATIENT RESTING COMFORTABLY IN BED TALKING TO FAMILY ON CELL PHONE. TITRATED PATIENT DURING THE SHIFT SINCE THIS AM, NOW ON 2-3L/MIN VIA NC GEOFFREY WELL. NOTED ON AND OFF COUGH BUT ABLE TO COUGH OUT SECRETIONS. AMBULATORY WITH STEADY GAIT. BED IN LOWEST POSITION ,LOCKED. BED ALARM ON. CALL LIGHT WITHIN REACH. IN NO APPARENT DISTRESS.
[2020-03-22 20:00] VITALS: BP 98/58
[2020-03-22] MEDS: NORTRIPTYLINE HCL 25 MG CAPSULE PO SCH (21:35)
--- NOTE | 2020-03-22 23:16 | NUR ---
RN NOTES: NOTED WITH ON AND OFF COUGH ENCOURAGE TO LIE ON SEMI FOWLERS POSITION, NO SOB, KEPT ON CLOSE WATCH.
[2020-03-23] VITALS: BP 101/58
[2020-03-23] MEDS: IPRATROPIUM/ALBUTEROL INHALER IH SCH ×4 (00:29→17:05)
--- NOTE | 2020-03-23 00:29 | NUR ---
RN NOTES: PATIENT MEDICATION/INHALER PRESENT AT BED SIDE UNABLE TO SCAN IPRATROPIUM/ALBUTEROL, ENTERED MANUALLY, PATIENT TOOK 3 INHALER AT 0000.
[2020-03-23 04:00] VITALS: BP_SYST 111; BP_SYST 89; BP_DIAS 52; BP_DIAS 58
--- NOTE | 2020-03-23 04:59 | NUR ---
RN NOTES: ABLE TO SLEEP AND REST, SHE IS TAKING HER O2 OFF IN BETWEEN SPO2-90% ENCOURAGE TO PUT IT BACK, REMAIN IN SR-70-80'S, NO SOB OR ANY DISCOMFORT.KEPT ON CLOSE VISUAL CHECK.
--- NOTE | 2020-03-23 07:00 | NUR ---
RN NOTES: ASLEEP, ALLS AND NEEDS ATTENDED, NO SOB OR ANY SIGN OF RESPIRATORY DISTRESS STILL WITH ON AND OFF COUGH.
--- NOTE | 2020-03-23 07:15 | NUR ---
LAWN CARE TECHNICIAN NOTES RECEIVED PATIENT IN BED ASLEEP, AROUSABLE TO VERBAL AND TACTILE STIMULI. HOB ELEVATED. ON 4L/MIN VIA NC GEOFFREY WELL. ON TELE MONITORING SR: 80. BED IN LOWEST POSITION ,LOCKED. BED ALARM ON. CALL LIGHT. ABLE TO VERBALIZE NEEDS.
[2020-03-23 07:48] LABS: BASOPHILS # (AUTO) 0.1 /CMM (0.0-0.2); BASOPHILS % (AUTO) 0.4 % (0.0-2.0); EOSINOPHILS % (AUTO) 0.5 % (0.0-6.0); HEMATOCRIT 40 % (33-45); HEMOGLOBIN 13.6 g/dL (11.5-14.8); LYMPHOCYTES # (AUTO) 1.2 /CMM (0.8-4.8); LYMPHOCYTES % (AUTO) 7.9 % (20.0-44.0); MEAN CORPUSCULAR HGB CONC 34 g/dl (31.0-36.0); MEAN CORPUSCULAR VOLUME 96 fL (82-100); MONOCYTES # (AUTO) 0.6 /CMM (0.1-1.30); NEUTROPHILS # (AUTO) 13.3 /CMM (1.8-8.9); NEUTROPHILS % (AUTO) 87.2 % (43.0-81.0); PLATELET COUNT (AUTO) 392 /CMM (150-450); RED BLOOD CELL COUNT(AUTO) 4.19 MIL/uL (4.0-5.2); WHITE BLOOD COUNT (AUTO) 15.3 K/uL (4.3-11.0)
[2020-03-23 08:00] VITALS: BP 102/66
[2020-03-23 08:33] LABS: CALCIUM, SERUM 8.1 mg/dL (8.5-10.1); CREATININE 0.7 mg/dL (0.6-1.3); PHOSPHORUS 3.1 mg/dL (2.5-4.9); POTASSIUM 4.1 mmol/L (3.5-5.1)
[2020-03-23] MEDS: FLUTICASONE/VILANTEROL 1 EACH BLST.W.DEV IH SCH (08:58)
[2020-03-23] MEDS: DEXAMETHASONE SOD PHOSPHATE 4 MG/ML VIAL IV SCH (08:59)
[2020-03-23] MEDS: APIXABAN 5 MG TABLET PO SCH ×2 (08:59→17:07)
[2020-03-23] MEDS: LOSARTAN POTASSIUM 25 MG TABLET PO SCH (09:00)
--- NOTE | 2020-03-23 09:00 | NUR ---
RN NOTES HELD VIANEY PATINO BP 102/66.
[2020-03-23 12:00] VITALS: BP 100/60
[2020-03-23] MEDS ORDERED: INFLUENZA VACCINE 2020-21 0.5 ML DISP.SYRIN IM ONE (14:30)
[2020-03-23 16:00] VITALS: BP 102/60
--- NOTE | 2020-03-23 19:00 | NUR ---
RN NOTES ALERT AND ORIENTED X4. AMBULATORY WITH STEADY GAIT. NO S/S OF RESPIRATORY DISTRESS. PATIENT FOR DISCHARGE. DISCHARGE PACKET/EDUCATION/TEACHINGS PROVIDED AND GIVEN TO PATIENT INCLUDING COVID-19 PRECAUTIONS/ISOLATIONS/CDC GUIDELINES, GIVEN TO JERMAINE-DTR VIA TELEPHONE WELL. DENIES ANY C/O PAIN NOR DISCOMFORT. WITH ON AND OFF COUGH BUT ABLE TO COUGH OUT SECRETIONS. ALL BELONGINGS ACCOUNTED FOR. FLU VACCINE GIVEN, GEOFFREY WELL. AWAITING FOR PATIENTS TRANSPORTATION. IN NO APPARENT DISTRESS.
--- NOTE | 2020-03-23 20:00 | NUR ---
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
--- NOTE | 2020-03-23 22:14 | NUR ---
MS2/TELE PATIENT WAS BROUGHT CLAUDE BY THE SUPERVISOR OF RESEARCH VIA WHEELCHAIR, DAUGHTER WAS WAITING DOWNSTAIRS. PAPER WORKS GIVEN TO THE PATIENT, TELE BOX, IV ACCESS X2 WERE REMOVED. ALL BELONGINGS WERE GIVEN, PATIENT WAS IN STABLE CONDITION VITAL SIGNS, BP 114/72, HR 73, RR 18, TEMP 98.1, O2 SAT 95% 3L NASAL CANULA.
== END 2020-03-23 22:14 | disposition home or self-care (01) | DRG 177 ==
LOC: ER 14:27 → TELE2 21:41
PROVIDERS: ATTEND Nurse Practitioner Acute Care
PROC: XW033E5 Introduction of Remdesivir Anti-infective into Peripheral Vein, Percutaneous Approach, New Technology Group 5 (ICD-10-PCS; principal; 2020-03-15)
DX: U07.1 COVID-19 (principal); J12.89 Other viral pneumonia; J96.01 Acute respiratory failure with hypoxia; J45.909 Unspecified asthma, uncomplicated; E78.5 Hyperlipidemia, unspecified; I10 Essential (primary) hypertension; Z79.82 Long term (current) use of aspirin; D72.829 Elevated white blood cell count, unspecified; A49.9 Bacterial infection, unspecified; T38.0X5A Adverse effect of glucocorticoids and synthetic analogues, initial encounter; Y92.89 Other specified places as the place of occurrence of the external cause; E66.9 Obesity, unspecified; Z68.28 Body mass index [BMI] 28.0-28.9, adult; Z71.3 Dietary counseling and surveillance
CPT/HCPCS: 36415; 71045-TC; 80048-TC; 80053-TC; 80061-TC; 80076-TC; 81001; 82550-TC; 82570-TC; 82728-TC; 83615-TC; 83735-TC; 83880; 84100-TC; 84443-TC; 84484-TC; 85025-TC; 85378-TC; 85385-TC; 85610-TC; 85730-TC; 86140-TC; 86850-TC; 87081-TC; A4216; C9803; G0378; J0696; J1100; J7040; J7050; J7060; Q2036; U0003

== ENCOUNTER 2021-09-16 23:28 | Emergency (ER) | payer MEDICARE, OTHER ==
[~2021-09-16] VITALS: Ht 167.6 cm; Wt 79.4 kg
[~2021-09-16 23:28] MED LIST: ALBU18HF2 MT; FLUT1BLS12 INH; LOSA25TA27 PO; MAGN400T26 PO; NORT25CA PO; OMEP20CA15 PO
--- NOTE | 2021-09-16 23:55 | NUR ---
EMELINA C/O L KNEE PAINXDAYS AGO. -TRAUMA -FALL. PT A.OX4. TOLERATING R/A WELL WITH NO SOB. AMBULATORY WITH STEADY GAIT.
[2021-09-17] MEDS ORDERED: ACETAMINOPHEN 325 MG TABLET ONE (01:48)
[2021-09-17] MEDS: ACETAMINOPHEN 650 MG/20.3 ML UDC PO ONE (01:51)
--- NOTE | 2021-09-17 01:52 | NUR ---
BLOCKER HAND AT PT'S BEDSIDE
--- NOTE | 2021-09-17 03:38 | NUR ---
US TECH AT PT'S BEDSIDE
[2021-09-17] MEDS ORDERED: IBUPROFEN 600 MG TABLET ONE (03:58)
[2021-09-17] MEDS: IBUPROFEN 600 MG TABLET PO ONE (04:01)
[2021-09-17] MEDS ORDERED: IBUP-1955 PO (05:21)
--- NOTE | 2021-09-17 05:31 | NUR ---
Patient discharged to home in stable condition. Written and verbal after care instructions given. Patient verbalizes understanding of instruction. PT ambulatory with a steady gait
[2021-09-17 05:49] VITALS: BP 128/68
== END 2021-09-17 05:49 | disposition home or self-care (01) ==
LOC: ER 23:31
DX: I80.02 Phlebitis and thrombophlebitis of superficial vessels of left lower extremity (principal); M25.562 Pain in left knee; I10 Essential (primary) hypertension; E78.5 Hyperlipidemia, unspecified; J45.909 Unspecified asthma, uncomplicated; Z60.2 Problems related to living alone; Z79.899 Other long term (current) drug therapy
CPT/HCPCS: 73564-TC; 93971-TC

== ENCOUNTER 2021-12-28 18:17 | Emergency (ER) | payer MEDICARE, OTHER ==
[~2021-12-28] VITALS: Ht 165.1 cm; Wt 79.4 kg
[~2021-12-28 18:17] MED LIST changes: +IBUP-1955 PO
[2021-12-28 18:26] VITALS: BP 140/90
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
[2021-12-28] MEDS ORDERED: HYDR-4209 PO (20:14)
--- NOTE | 2021-12-28 20:51 | NUR ---
Patient discharged to home in stable condition. Written and verbal after care instructions given. Patient verbalizes understanding of instruction.
== END 2021-12-28 20:55 | disposition home or self-care (01) ==
LOC: ER 18:40
DX: R07.89 Other chest pain (principal); I10 Essential (primary) hypertension; E78.5 Hyperlipidemia, unspecified; J45.909 Unspecified asthma, uncomplicated; Z60.2 Problems related to living alone; Z79.899 Other long term (current) drug therapy; V49.69XA Unspecified car occupant injured in collision with other motor vehicles in traffic accident, initial encounter; Y93.89 Activity, other specified; Y92.413 State road as the place of occurrence of the external cause; Y99.8 Other external cause status
CPT/HCPCS: 71045-TC; 71120-TC

== ENCOUNTER 2022-03-02 23:55 | Emergency (ER) | payer MEDICARE, OTHER ==
[~2022-03-02] VITALS: Ht 165.1 cm; Wt 78.5 kg
[~2022-03-02 23:55] MED LIST changes: +HYDR-4209 PO
--- NOTE | 2022-03-03 01:30 | NUR ---
BIBS FOR WORSENING L KNEE PAIN AND SWELLING X 1 WEEK. AWAKE AND ALERT X4 AMBULATES WITH STEADY GAIT. V/S WNL.
--- NOTE | 2022-03-03 01:46 | NUR ---
RAD AT BED SIDE
[2022-03-03] MEDS ORDERED: KETOROLAC TROMETHAMINE INJ 60 MG/2 ML VIAL IM ONE (02:00)
[2022-03-03] MEDS ORDERED: KETOROLAC TROMETHAMINE INJ 30 MG/ML VIAL ONE (02:03)
[2022-03-03] MEDS ORDERED: IBUP-1953 PO (04:42)
[2022-03-03] MEDS ORDERED: DICL50TA9 PO (05:09)
--- NOTE | 2022-03-03 05:11 | NUR ---
Patient discharged to home in stable condition. Written and verbal after care instructions given. Patient verbalizes understanding of instruction.
[2022-03-03 05:15] VITALS: BP 32/87
== END 2022-03-03 05:15 | disposition home or self-care (01) ==
LOC: ER 23:57
DX: S89.92XA Unspecified injury of left lower leg, initial encounter (principal); I10 Essential (primary) hypertension; E78.5 Hyperlipidemia, unspecified; J45.909 Unspecified asthma, uncomplicated; Z60.2 Problems related to living alone; Z79.899 Other long term (current) drug therapy; X58.XXXA Exposure to other specified factors, initial encounter; Y93.89 Activity, other specified; Y92.89 Other specified places as the place of occurrence of the external cause; Y99.8 Other external cause status
CPT/HCPCS: 99283; 96372; 73564; J1885

== ENCOUNTER 2023-10-10 15:12 | Emergency (ER) | payer MEDICARE, OTHER ==
[~2023-10-10] VITALS: Ht 165.1 cm; Wt 83.0 kg
[~2023-10-10 15:12] MED LIST changes: +DICL50TA9 PO
[2023-10-10] MEDS ORDERED: ALBU6.7H9 INH (18:05)
[2023-10-10 19:20] VITALS: BP 134/72; TEMP 98.4; O2SAT 98
== END 2023-10-10 19:21 | disposition home or self-care (01) ==
LOC: ER 15:12
DX: J45.909 Unspecified asthma, uncomplicated (principal); R05.9 Cough, unspecified; R50.9 Fever, unspecified; I10 Essential (primary) hypertension; E78.5 Hyperlipidemia, unspecified; Z60.2 Problems related to living alone
CPT/HCPCS: 71045-TC

== ENCOUNTER 2023-11-07 02:31 | Emergency (ER) | payer MEDICARE ==
[~2023-11-07] VITALS: Ht 160 cm; Wt 81.6 kg
[~2023-11-07 02:31] MED LIST changes: +ALBU6.7H9 INH
[2023-11-07] MEDS ORDERED: MORPHINE SULFATE INJ 4 MG/ML DISP.SYRIN ONE (04:15)
[2023-11-07] MEDS ORDERED: ONDANSETRON HCL/PF 4 MG/2 ML VIAL ONE (04:15)
[2023-11-07] MEDS: IV NS 0.9% 1,000 ML BAG IV ONE (04:28)
[2023-11-07] MEDS: MORPHINE SULFATE INJ 2 MG/ML DISP.SYRIN IV ONE (04:29)
[2023-11-07] MEDS: ONDANSETRON HCL/PF 4 MG/2 ML VIAL IVP ONE (04:29)
[2023-11-07 04:35] LABS: BASOPHILS % (AUTO) 0.8 % (0.0-2.0); EOSINOPHILS # (AUTO) 0.3 K/uL (0.0-0.7); EOSINOPHILS % (AUTO) 4.6 % (0.0-6.0); HEMATOCRIT 39 % (33-45); HEMOGLOBIN 13.1 g/dL (11.5-14.8); LYMPHOCYTES % (AUTO) 33.9 % (20.0-44.0); MEAN CORPUSCULAR HEMOGLOBIN 32 PG (26.0-33.0); MEAN CORPUSCULAR HGB CONC 33 g/dl (31.0-36.0); MEAN CORPUSCULAR VOLUME 96 fL (82-100); MONOCYTES # (AUTO) 0.8 K/uL (0.1-1.30); NEUTROPHILS # (AUTO) 2.8 K/uL (1.8-8.9); NEUTROPHILS % (AUTO) 47.7 % (43.0-81.0); PLATELET COUNT (AUTO) 186 K/uL (150-450); RED BLOOD CELL COUNT(AUTO) 4.09 MIL/uL (4.0-5.2); RED CELL DISTRIBUTION WIDTH 13.5 % (11.5-15.0); WHITE BLOOD COUNT (AUTO) 5.9 K/uL (4.3-11.0)
[2023-11-07 04:36] LABS: APPEARANCE,URINE CLEAR (CLEAR); BILIRUBIN,URINE NEGATIVE (NEGATIVE); BLOOD, URINE NEGATIVE Ery/uL (NEGATIVE); COLOR,URINE YELLOW (YELLOW); KETONES,URINE NEGATIVE (NEGATIVE); LEUKOCYTE ESTERASE ,URINE 1+ (NEGATIVE); NITRITE, URINE NEGATIVE (NEGATIVE); PROTEIN,URINE NEGATIVE (NEGATIVE); UGLUCOSE NEGATIVE (NEGATIVE); UROBILINOGEN,URINE 0.2 EU/dL (0.2)
[2023-11-07 04:48] LABS: ADD URINE CULTURE YES; BACTERIA,URINE 1+ /HPF (None Seen); RBC,URINE NONE SEEN /HPF (0-2)
[2023-11-07 04:54] LABS: INR 0.97 (0.91-1.10); PARTIAL THROMBOPLASTIN TIME 24.8 SEC (24.3-34.3); PROTHROMBIN TIME 10.3 SECS (9.2-11.1)
[2023-11-07 05:45] LABS: CALCIUM, SERUM 8.8 mg/dL (8.5-10.1); CARBON DIOXIDE 27 mmol/L (21-32); CHLORIDE 104 mmol/L (98-107); GLUCOSE 100 mg/dL (74-106); POTASSIUM 3.9 mmol/L (3.5-5.1); SODIUM SERUM 139 mmol/L (136-145); UREA NITROGEN, BLOOD 22 mg/dL (7-18)
[2023-11-07 06:00] LABS: ALANINE AMINOTRANSFERASE 27 U/L (12-78); ALBUMIN 3.9 g/dL (3.4-5.0); ALKALINE PHOSPHATASE 130 U/L (46-116); ASPARTATE AMINOTRANSFERASE 25 U/L (15-37); BILIRUBIN,DIRECT 0.1 mg/dL (0.0-0.2); BILIRUBIN,TOTAL 0.6 mg/dL (0.2-1.0); LIPASE 42 U/L (16-77); TOTAL PROTEIN, SERUM 7.5 g/dL (6.4-8.2)
[2023-11-07] MEDS ORDERED: FAMO-131 PO (08:37)
[2023-11-07 08:54] VITALS: BP 128/81; TEMP 98.4; O2SAT 97
== END 2023-11-07 08:55 | disposition home or self-care (01) ==
LOC: ER 02:40
DX: R10.10 Upper abdominal pain, unspecified (principal); I10 Essential (primary) hypertension; E78.5 Hyperlipidemia, unspecified; J45.909 Unspecified asthma, uncomplicated; Z79.52 Long term (current) use of systemic steroids; Z79.891 Long term (current) use of opiate analgesic; Z79.899 Other long term (current) drug therapy; Z60.2 Problems related to living alone
CPT/HCPCS: 99285; 96374; 76705; 71045; 96361; 96375; 93005; 85025; 80048; 87086; 83690; 80076; 81001; 36415; 84484; 85730; J2270; J2405; J7030

== ENCOUNTER 2023-11-11 16:02 | Emergency (ER) | payer MEDICARE ==
[~2023-11-11] VITALS: Ht 160 cm; Wt 81.6 kg
[2023-11-11] MEDS: IV NS 0.9% 1,000 ML BAG IV ONE (09:05)
[~2023-11-11 16:02] MED LIST changes: +FAMO-131 PO
[2023-11-11 16:47] LABS: BASOPHILS % (AUTO) 0.6 % (0.0-2.0); EOSINOPHILS # (AUTO) 0.2 K/uL (0.0-0.7); EOSINOPHILS % (AUTO) 2.7 % (0.0-6.0); HEMATOCRIT 38 % (33-45); HEMOGLOBIN 12.9 g/dL (11.5-14.8); LYMPHOCYTES # (AUTO) 1.3 K/uL (0.8-4.8); LYMPHOCYTES % (AUTO) 23.4 % (20.0-44.0); MEAN CORPUSCULAR HEMOGLOBIN 32 PG (26.0-33.0); MEAN CORPUSCULAR HGB CONC 34 g/dl (31.0-36.0); MEAN CORPUSCULAR VOLUME 94 fL (82-100); MONOCYTES # (AUTO) 0.5 K/uL (0.1-1.30); MONOCYTES % (AUTO) 9.1 % (2.0-12.0); NEUTROPHILS # (AUTO) 3.7 K/uL (1.8-8.9); NEUTROPHILS % (AUTO) 64.2 % (43.0-81.0); PLATELET COUNT (AUTO) 206 K/uL (150-450); RED CELL DISTRIBUTION WIDTH 13.3 % (11.5-15.0); WHITE BLOOD COUNT (AUTO) 5.8 K/uL (4.3-11.0)
[2023-11-11 16:54] LABS: CALCIUM, SERUM 8.5 mg/dL (8.5-10.1); CARBON DIOXIDE 26 mmol/L (21-32); CHLORIDE 104 mmol/L (98-107); CREATININE 0.9 mg/dL (0.6-1.3); GLUCOSE 130 mg/dL (74-106); SODIUM SERUM 136 mmol/L (136-145); UREA NITROGEN, BLOOD 19 mg/dL (7-18)
[2023-11-11 17:00] LABS: ALANINE AMINOTRANSFERASE 22 U/L (12-78); ALBUMIN 3.6 g/dL (3.4-5.0); ALKALINE PHOSPHATASE 97 U/L (46-116); ASPARTATE AMINOTRANSFERASE 17 U/L (15-37); BILIRUBIN,DIRECT 0.1 mg/dL (0.0-0.2); BILIRUBIN,TOTAL 0.6 mg/dL (0.2-1.0); LIPASE 29 U/L (16-77)
[2023-11-11 18:20] LABS: APPEARANCE,URINE Clear (CLEAR); BILIRUBIN,URINE Negative (NEGATIVE); BLOOD, URINE Negative Ery/uL (NEGATIVE); COLOR,URINE LIGHT YELLOW (YELLOW); KETONES,URINE Negative (NEGATIVE); LEUKOCYTE ESTERASE ,URINE Negative (NEGATIVE); NITRITE, URINE Negative (NEGATIVE); PROTEIN,URINE Negative (NEGATIVE); UGLUCOSE Negative (NEGATIVE); UROBILINOGEN,URINE 0.2 EU/dL (0.2)
[2023-11-11] MEDS ORDERED: TAMSULOSIN 0.4 MG CAP.SR.24H ONE (18:52)
[2023-11-11] MEDS ORDERED: KETOROLAC TROMETHAMINE 15 MG/ML VIAL ONE ×2 (18:52→21:05)
[2023-11-11] MEDS: TAMSULOSIN 0.4 MG CAP.SR.24H PO ONE (19:05)
[2023-11-11] MEDS: KETOROLAC TROMETHAMINE 15 MG/ML VIAL IV ONE (19:05)
[2023-11-11] MEDS ORDERED: ONDA4TAB11 PO (19:51)
[2023-11-11] MEDS ORDERED: KETO10TA2 PO (19:51)
[2023-11-11] MEDS ORDERED: TAMS-12 PO (19:51)
[2023-11-11 20:06] VITALS: BP 136/84; TEMP 98; O2SAT 99
[2023-11-11] MEDS: KETOROLAC TROMETHAMINE 15 MG/ML VIAL IM ONE (21:06)
== END 2023-11-11 20:32 | disposition home or self-care (01) ==
LOC: ER 16:05
DX: N20.1 Calculus of ureter (principal); I10 Essential (primary) hypertension; E78.5 Hyperlipidemia, unspecified; J45.909 Unspecified asthma, uncomplicated; Z60.2 Problems related to living alone
CPT/HCPCS: 99285; 74176; 96374; 96361; 85025; 80048; 83690; 80076; 81003; 36415; 96372; J7030; J1885 ×2

== ENCOUNTER 2023-11-17 22:39 | Emergency (ER) | payer MEDICARE ==
[~2023-11-17] VITALS: Ht 160 cm; Wt 78.5 kg
[~2023-11-17 22:39] MED LIST changes: +KETO10TA2 PO; +ONDA4TAB11 PO; +TAMS-12 PO
[2023-11-18] MEDS ORDERED: BACLOFEN (10 MG) 10 MG TABLET ONE (00:05)
[2023-11-18] MEDS ORDERED: KETOROLAC TROMETHAMINE INJ 30 MG/ML VIAL ONE (00:05)
[2023-11-18] MEDS: KETOROLAC TROMETHAMINE INJ 60 MG/2 ML VIAL IM ONE (00:13)
[2023-11-18] MEDS: BACLOFEN (10 MG) 10 MG TABLET PO ONE (00:13)
[2023-11-18] MEDS ORDERED: KETO10TA2 PO (01:55)
[2023-11-18] MEDS ORDERED: BACL5TAB PO (01:55)
[2023-11-18] MEDS ORDERED: HYDR-4209 PO (01:55)
[2023-11-18] MEDS ORDERED: HYDR-3980 PO (02:23)
[2023-11-18 02:43] VITALS: BP 150/97; TEMP 98.1; O2SAT 99
== END 2023-11-18 02:46 | disposition home or self-care (01) ==
LOC: ER 23:02
DX: S23.3XXA Sprain of ligaments of thoracic spine, initial encounter (principal); I10 Essential (primary) hypertension; E78.5 Hyperlipidemia, unspecified; J45.909 Unspecified asthma, uncomplicated; Z79.1 Long term (current) use of non-steroidal anti-inflammatories (NSAID); Z79.52 Long term (current) use of systemic steroids; Z79.891 Long term (current) use of opiate analgesic; Z79.899 Other long term (current) drug therapy; Z60.2 Problems related to living alone; X58.XXXA Exposure to other specified factors, initial encounter; Y93.89 Activity, other specified; Y92.89 Other specified places as the place of occurrence of the external cause; Y99.8 Other external cause status
CPT/HCPCS: 99284; 71045; 72074; 96372; J1885

== ENCOUNTER 2024-02-26 17:23 | Emergency (ER) | payer MEDICARE ==
[~2024-02-26] VITALS: Ht 165.1 cm; Wt 78.5 kg
[~2024-02-26 17:23] MED LIST changes: +BACL5TAB PO; +HYDR-3980 PO
[2024-02-26] MEDS ORDERED: predniSONE 20 MG TABLET ONE (18:56)
[2024-02-26] MEDS: predniSONE 20 MG TABLET PO ONE (18:58)
[2024-02-26] MEDS ORDERED: IPRATROPIUM NEB FS 0.5 MG/2.5 ML AMPUL.NEB ONE (19:09)
[2024-02-26] MEDS ORDERED: ALBUTEROL FS 2.5 MG/3 ML VIAL.NEB ONE (19:09)
[2024-02-26 19:14] VITALS: O2SAT 92
[2024-02-26] MEDS: ALBUTEROL FS 2.5 MG/3 ML VIAL.NEB CONTNEB ONE (19:16)
[2024-02-26] MEDS: IPRATROPIUM NEB FS 0.5 MG/2.5 ML AMPUL.NEB NEB ONE (19:16)
[2024-02-26 19:40] VITALS: O2SAT 100
[2024-02-26] MEDS ORDERED: AZIT250T PO (20:02)
[2024-02-26] MEDS ORDERED: ALBU8.5H8 INH (20:02)
[2024-02-26] MEDS ORDERED: PRED50TA PO (20:02)
[2024-02-26 20:23] VITALS: BP 138/72; TEMP 98; O2SAT 100
== END 2024-02-26 20:24 | disposition home or self-care (01) ==
LOC: ER 17:42
DX: J40 Bronchitis, not specified as acute or chronic (principal); I10 Essential (primary) hypertension; E78.5 Hyperlipidemia, unspecified; E11.9 Type 2 diabetes mellitus without complications; Z79.899 Other long term (current) drug therapy; Z79.52 Long term (current) use of systemic steroids; Z20.822 Contact with and (suspected) exposure to COVID-19; Z79.51 Long term (current) use of inhaled steroids; Z60.2 Problems related to living alone
CPT/HCPCS: 99285; 71045; 87426; 93005; 94640; J7512

== ENCOUNTER 2024-05-18 15:16 | Emergency (ER) | payer MEDICARE ==
[~2024-05-18] VITALS: Ht 162.6 cm; Wt 90.7 kg
[~2024-05-18 15:16] MED LIST changes: +ALBU8.5H8 INH; +AZIT250T PO; +PRED50TA PO
[2024-05-18] MEDS ORDERED: ONDANSETRON HCL/PF 4 MG/2 ML VIAL ONE (15:54)
[2024-05-18] MEDS: IV NS 0.9% 500 ML BAG IV ONE (16:00)
[2024-05-18] MEDS: ONDANSETRON HCL/PF 4 MG/2 ML VIAL IV ONE (16:00)
[2024-05-18 16:22] LABS: CALCIUM, SERUM 9.1 mg/dL (8.5-10.1); POTASSIUM 3.7 mmol/L (3.5-5.1)
[2024-05-18 16:28] LABS: BASOPHILS % (AUTO) 0.5 % (0.0-2.0); EOSINOPHILS % (AUTO) 0.8 % (0.0-6.0); HEMATOCRIT 40 % (33-45); HEMOGLOBIN 13.7 g/dL (11.5-14.8); LYMPHOCYTES # (AUTO) 1.2 K/uL (0.8-4.8); LYMPHOCYTES % (AUTO) 20.6 % (20.0-44.0); MEAN CORPUSCULAR HEMOGLOBIN 33 PG (26.0-33.0); MEAN CORPUSCULAR HGB CONC 35 g/dl (31.0-36.0); MEAN CORPUSCULAR VOLUME 95 fL (82-100); MONOCYTES # (AUTO) 0.4 K/uL (0.1-1.30); MONOCYTES % (AUTO) 6.6 % (2.0-12.0); NEUTROPHILS # (AUTO) 4.1 K/uL (1.8-8.9); NEUTROPHILS % (AUTO) 71.5 % (43.0-81.0); PLATELET COUNT (AUTO) 212 K/uL (150-450); RED BLOOD CELL COUNT(AUTO) 4.15 MIL/uL (4.0-5.2); RED CELL DISTRIBUTION WIDTH 13.5 % (11.5-15.0); WHITE BLOOD COUNT (AUTO) 5.8 K/uL (4.3-11.0)
[2024-05-18] MEDS ORDERED: ONDA4TAB5 PO (17:36)
[2024-05-18 18:40] VITALS: BP 146/103; TEMP 98.3; O2SAT 100
== END 2024-05-18 18:30 | disposition home or self-care (01) ==
LOC: ER 15:24
DX: R11.2 Nausea with vomiting, unspecified (principal); R42 Dizziness and giddiness; F41.9 Anxiety disorder, unspecified; E11.9 Type 2 diabetes mellitus without complications; I10 Essential (primary) hypertension; J45.909 Unspecified asthma, uncomplicated; Z79.51 Long term (current) use of inhaled steroids; Z79.52 Long term (current) use of systemic steroids; Z79.899 Other long term (current) drug therapy; Z60.2 Problems related to living alone
CPT/HCPCS: 99285; 96374; 71045; 93005; 85025; 80048; 36415; J2405; J7030

== ENCOUNTER 2025-01-10 17:38 | Emergency (ER) | payer MEDICARE ==
[~2025-01-10] VITALS: Ht 165.1 cm; Wt 81.6 kg
[~2025-01-10 17:38] MED LIST changes: +ONDA4TAB5 PO
[2025-01-10 20:06] LABS: PLATELET COUNT (AUTO) 231 K/uL (150-450); RED BLOOD CELL COUNT(AUTO) 4.36 MIL/uL (4.0-5.2); RED CELL DISTRIBUTION WIDTH 13.5 % (11.5-15.0); WHITE BLOOD COUNT (AUTO) 7.0 K/uL (4.3-11.0)
[2025-01-10 20:12] LABS: CALCIUM, SERUM 8.7 mg/dL (8.5-10.1); CREATININE 0.9 mg/dL (0.6-1.3); SODIUM SERUM 139 mmol/L (136-145); UREA NITROGEN, BLOOD 14 mg/dL (7-18)
[2025-01-10] MEDS ORDERED: ALBU18HF2 IH (21:53)
[2025-01-10 22:05] VITALS: BP 151/90; TEMP 98.2; O2SAT 96
== END 2025-01-10 22:05 | disposition home or self-care (01) ==
LOC: ER 17:48
DX: J06.9 Acute upper respiratory infection, unspecified (principal); I10 Essential (primary) hypertension; E11.9 Type 2 diabetes mellitus without complications; E78.5 Hyperlipidemia, unspecified; J45.909 Unspecified asthma, uncomplicated; Z79.51 Long term (current) use of inhaled steroids; Z79.52 Long term (current) use of systemic steroids; Z79.899 Other long term (current) drug therapy; Z20.822 Contact with and (suspected) exposure to COVID-19
CPT/HCPCS: 36415; 71046; 80048-TC; 84484-TC; 85025-TC